=== PATIENT | female | born 1995 | race Caucasian/White ===

== ENCOUNTER 2016-09-18 12:14 | Emergency (ER) | payer BC, MEDICAID ==
[~2016-09-18] VITALS: Wt 96.5 kg
[~2016-09-18 12:14] MED LIST: DENIES; HYDR-3498 PO; IBUP-1542 PO; OMEP40CA3 PO
[2016-09-18] MEDS ORDERED: ONDANSETRON 4 MG INJ IV STA (14:17)
[2016-09-18] MEDS ORDERED: SOD CHLORIDE 0.9% 1,000 ML IV STA (14:17)
[2016-09-18] MEDS ORDERED: morphine 4 MG/ML VIAL IV STA (14:17)
[2016-09-18 14:51] LABS: BASOPHIL # 0.1 10^3/ul (0.0-0.1); BASOPHILS % 0.9 % (0.0-2.0); EOSINOPHILS # 0.1 10^3/ul (0.0-0.5); EOSINOPHILS % 1.2 % (0.0-7.0); HEMATOCRIT 39.6 % (37.0-47.0); HEMOGLOBIN 13.2 g/dl (12.0-16.0); LYMPHOCYTES # 1.7 10^3/ul (0.8-2.9); LYMPHOCYTES % 19.9 % (18.0-55.0); MEAN CORPUSCULAR HEMOGLOBIN 29.5 pg (29.0-33.0); MEAN CORPUSCULAR HGB CONC 33.4 g/dl (32.0-37.0); MEAN CORPUSCULAR VOLUME 88.3 fl (72.0-104.0); MEAN PLATELET VOLUME 7.9 fl (7.4-10.4); MONOCYTE # 0.5 10^3/ul (0.3-0.9); MONOCYTES % 6.3 % (0.0-13.0); NEUTROPHIL # 6.1 10^3/ul (1.6-7.5); NEUTROPHILS % 71.7 % (30.0-74.0); PLATELET COUNT 318 10^3/UL (140-440); RED BLOOD COUNT 4.48 10^6/ul (4.20-5.40); RED CELL DISTRIBUTION WIDTH 13.2 % (11.5-14.5); UNCORRECTED WBC 8.5 10^3/ul (4.8-10.8); WHITE BLOOD COUNT 8.5 10^3/ul (4.8-10.8)
[2016-09-18 14:59] LABS: ALBUMIN 4.3 g/dl (3.3-4.9); POTASSIUM 4.2 mmol/L (3.5-5.1)
[2016-09-18 15:01] LABS: BILIRUBIN,INDIRECT 0.1 mg/dl (0-1.1); BILIRUBIN,TOTAL 0.1 mg/dl (0.2-1.3); CREATININE 0.76 mg/dl (0.44-1.00)
[2016-09-18 15:02] LABS: ALBUMIN/GLOBULIN RATIO 1.04; CALCIUM 9.3 mg/dl (8.4-10.2); TOTAL PROTEIN 8.4 g/dl (6.1-8.1)
--- NOTE | 2016-09-18 15:17 | ERD ---
ER Documentation Chief Complaint Date/Time DATE: 09/18/16 TIME: 15:10 Chief Complaint BILAT SIDE PAIN, STATES HX OF "OVARIAN PAIN", NO VB HPI This is a 20-year-old female presents to the ER with lower abdominal pain that started 2 days ago. Patient states that pelvic pain is sharp, severe and constant. It is worse whenever she moves. Pain radiates to her back. Patient admits to urinary frequency and dysuria. She also admits to pain with sexual intercourse. Patient is also complaining of vaginal discharge that is yellow in color, patient states she has not smelled the discharge and does not know if there is foul-smelling. Patient is currently sexually active with her boyfriend and she uses condoms. Patient is worried she has a strong family history of ovarian cancer. Patient admits to fevers and chills. She denies any nausea vomiting or diarrhea. ROS 12 point review of systems was done, all negative except per HPI. Medications Home Meds Active Scripts Hydrocodone/Acetaminophen ([place] 5-325 Tablet) 1 Each Tablet, 1 TAB PO Q6H Y for PAIN, #20 TAB Prov:KARLA,CORAZON C 09/18/16 Metronidazole* (Flagyl*) 500 Mg Tablet, 500 MG PO TID for 7 Days, TAB Prov:KARLA,CORAZON C 09/18/16 Hydrocodone Bit-Acetaminophen* ([place]*) 5-325 Mg Tab, 1 TAB PO Q6 Y for PAIN, # 20 TAB Prov:KARLACORAZON C 12/09/15 Ibuprofen* (Motrin*) 600 Mg Tab, 600 MG PO Q6, #30 TAB Prov:KARLACORAZON C 12/09/15 Omeprazole* (Prilosec*) 40 Mg Capsule.dr, 40 MG PO DAILY for 14 Days, CAP Prov:SUHA TENORIO [employer]IC[employer] FARM MANAGER 07/19/15 Reported Medications [Denies] No Conflict Check 09/26/10 Allergies Allergies: Coded Allergies: No Known Drug Allergies (Verified Allergy, Mild, 09/18/16) PMhx/Soc History of Surgery: No Anesthesia Reaction: No Hx Neurological Disorder: No Hx Respiratory Disorders: Yes (ASTHMA) Hx Cardiac Disorders: No Hx Psychiatric Problems: No Hx Miscellaneous Medical Probl: No Hx Alcohol Use: No Hx Substance Use: No Hx Tobacco Use: Yes Smoking Status: Never smoker Physical Exam Vitals Vital Signs Date Time Temp Pulse Resp B/P Pulse Ox O2 Delivery O2 Flow Rate FiO2 09/18/16 12:29 97.8 100 17 133/82 99 Physical Exam GENERAL: The patient is well developed and appropriate for usual state of health , in no apparent distress. HEENT: Atraumatic. CHEST: Clear to auscultation bilaterally. There are no rales, wheezes or rhonchi. HEART: Regular rate and rhythm. No murmurs, clicks, rubs or gallops. ABDOMEN: Patient is tender to palpation all over the abdomen. Good bowel sounds. No rebound or guarding. No gross peritonitis. No gross organomegaly or masses. No Bajwa sign or McBurney point tenderness. BACK: No midline or flank tenderness. : there is yellow vaginal discharge, negative chandlier sign. ovaries not felt EXTREMITIES: Full range of motion. Grossly neurovascularly intact. NEURO: Alert and oriented. Result Diagram: 09/18/16 1405 09/18/16 1405 Results 24 hrs Laboratory Tests Test 09/18/16 14:05 09/18/16 14:35 Alanine Aminotransferase (ALT/SGPT) 29IU/L Albumin 4.3g/dl Albumin/Globulin Ratio 1.04 Alkaline Phosphatase 83IU/L Anion Gap 17 Aspartate Amino Transf (AST/SGOT) 20IU/L Basophils # 0.110^3/ul Basophils % 0.9% Blood Urea Nitrogen 15mg/dl Calcium Level 9.3mg/dl Carbon Dioxide Level 28mmol/L Chloride Level 105mmol/L Creatinine 0.76mg/dl Direct Bilirubin 0.00mg/dl Eosinophils # 0.110^3/ul Eosinophils % 1.2% Globulin 4.10g/dl Glucose Level 69mg/dl Hematocrit 39.6% Hemoglobin 13.2g/dl Indirect Bilirubin 0.1mg/dl Lipase 68U/L Lymphocytes # 1.710^3/ul Lymphocytes % 19.9% Mean Corpuscular Hemoglobin 29.5pg Mean Corpuscular Hemoglobin Concent 33.4g/dl Mean Corpuscular Volume 88.3fl Mean Platelet Volume 7.9fl Monocytes # 0.510^3/ul Monocytes % 6.3% Neutrophils # 6.110^3/ul Neutrophils % 71.7% Nucleated Red Blood Cells # 0.010^3/ul Nucleated Red Blood Cells % 0.0/100WBC Platelet Count 08084^3/UL Potassium Level 4.2mmol/L Red Blood Count 4.4810^6/ul Red Cell Distribution Width 13.2% Sodium Level 146mmol/L Total Bilirubin 0.1mg/dl Total Protein 8.4g/dl White Blood Count 8.510^3/ul Urine Bacteria FEW Urine Bilirubin NEGATIVE Urine Clarity HAZY Urine Color LT. YELLOW Urine Glucose NEGATIVE% Urine Hemoglobin 3+ Urine Ketones TRACE Urine Leukocyte Esterase TRACE Urine Microscopic RBC 5-10/HPF Urine Microscopic WBC 2-5/HPF Urine Mucus MODERATE Urine Nitrite NEGATIVE Urine Specific [place] >=1.030 Urine Squamous Epithelial Cells MODERATE Urine Total Protein TRACE Urine Urobilinogen 0.2 E.U./dL Urine pH 6.0 Current Medications Medications (Trade) Dose Ordered Sig/[place] Route PRN Reason Start Time Stop Time Status Last Admin Dose Admin Sodium Chloride (NS) 1,000 ml @ 1,000 mls/hr Q1H STAT IV 09/18/16 14:17 09/18/16 15:16 DC 09/18/16 14:47 Morphine Sulfate (morphine) 6 mg ONCE STAT IV 09/18/16 14:17 09/18/16 14:20 DC 09/18/16 14:47 Ondansetron HCl (Zofran Inj) 4 mg ONCE STAT IV 09/18/16 14:17 09/18/16 14:20 DC 09/18/16 14:47 Ceftriaxone Sodium (Rocephin) 250 mg ONCE ONCE IM 09/18/16 16:30 09/18/16 16:33 DC 09/18/16 16:47 Azithromycin (Zithromax) 1,000 mg ONCE ONCE PO 09/18/16 16:30 09/18/16 16:33 DC 09/18/16 16:46 Procedures/MDM Differential diagnosis includes but is not limited to; appendicitis, intra- abdominal abscess, tubo-ovarian abscess, , ovarian torsion, STI, pelvic inflammatory disease, UTI, pyelonephritis, bacterial vaginosis. This is a 20-year-old female presents to the ER with abdominal pain. At this time patient diagnostic examination is normal. On pelvic exam patient did have a yellow purulent vaginal discharge. Patient will be treated for possible STI's and she will also be treated for bacterial vaginosis. Urinary tract infection, I doubt pyelonephritis. She is afebrile and well-appearing. Patient will be sent home with metronidazole and with [place] for pain. Patient needs to follow- up with her primary care doctor within 1-2 days or return to ER sooner if symptoms worsen. My medical decision making was shared with the patient she understands and agrees with plan. Departure Diagnosis: Primary Impression: Vaginal discharge Additional Impression: Pelvic pain Condition: Stable CORAZON ACOSTA Sep 18, 2016 15:16
[2016-09-18 15:20] LABS: CONDITION 1
[2016-09-18 15:31] LABS: ADD UMIC YES; URINE BILIRUBIN (Dip) NEGATIVE (NEGATIVE); URINE BLOOD (Dip) 3+ (NEGATIVE); URINE COLOR LT. YELLOW (YELLOW); URINE GLUCOSE (Dip) NEGATIVE (NEGATIVE); URINE KETONES (Dip) TRACE (NEGATIVE); URINE LEUKOCYTE ESTERASE (Dip) TRACE (NEGATIVE); URINE NITRITE (Dip) NEGATIVE (NEGATIVE); URINE TOTAL PROTEIN (Dip) TRACE (NEGATIVE); URINE UROBILINOGEN (Dip) 0.2 E.U./dL (0.1-1.0)
--- NOTE | 2016-09-18 15:31 | RADRPT ---
PROCEDURE: US Pelvis. CLINICAL INDICATION: pelvic pain TECHNIQUE: Multiple sonographic images of the pelvis were obtained utilizing a transabdominal and endovaginal technique. The images were reviewed on a PACS workstation. COMPARISON: None. LMP: 04/17/2016 FINDINGS: The uterus measures 7.1 x 2.9 x 3.8 cm. The endometrial echo complex measures 7 mm in thickness. N o discrete lesion is seen. The right ovary measures 2.6 x 2.1 x 2.4 cm. The left ovary measures 2.5 x 1.5 x 1.8 cm. There is no rmal vascular flow in both ovaries. No significant ovarian lesions are seen. No significant pelvic free fluid is identified. IMPRESSION: Unremarkable pelvic ultrasound, as above. RPTAT: EE Physician Lukasz Date Time Electronically viewed and signed by Physician Lukasz on 09/18/2016 15:31 /
[2016-09-18 15:41] LABS: BACTERIA,URINE FEW; MUCUS,URINE MODERATE; SQUAMOUS EPITHELIAL CELL,UR MODERATE
--- NOTE | 2016-09-18 15:43 | RADRPT ---
PROCEDURE: CT abdomen and pelvis without contrast and with 3-D reconstructions CLINICAL INDICATION: Abdominal Pain, family history of ovarian/pelvic cancer TECHNIQUE: CT scan of the abdomen and pelvis without contrast was performed on a multislice CT [facility]. 3-D sagittal and coronal reformatted images were obtained from the axial source images. DLP 1336.96 mGycm CTDIvol 21.65 mGy COMPARISON: Pelvic ultrasound from the same date FINDINGS: The visualized lung bases are unremarkable. The liver is homogenous in attenuation. There are no focal liver lesions. There is no intrahepatic or extrahepatic biliary ductal dilatation. The gallbladder is within normal limits. The spleen, pancreas, and adrenal glands are within normal limits. The kidneys are symmetric and without focal lesions. There are no renal calculi. There is no obstruc tive uropathy. There are no dilated or thickened loops of bowel. The appendix is within normal limits. The aorta is within normal limits. There are no enlarged mesenteric, periaortic, or retroperitoneal lymph nodes. The bladder is within normal limits. There is no free air. There is no free fluid. There are no enlarged intrapelvic or inguinal lymph nodes. Osseous and soft tissue structures are unremarkable. IMPRESSION: Unremarkable noncontrast CT scan of the abdomen and pelvis. RPTAT: EE Physician Lukasz Date Time Electronically viewed and signed by Physician Lukasz on 09/18/2016 15:42 /
[2016-09-18] MEDS ORDERED: AZITHROMYCIN 250 MG TAB PO ONE (16:30)
[2016-09-18] MEDS ORDERED: CEFTRIAXONE 250 MG INJ IM ONE (16:30)
[2016-09-18] MEDS ORDERED: METR500T PO (16:37)
[2016-09-18] MEDS ORDERED: HYDR-906 PO (16:52)
== END 2016-09-18 17:27 | disposition home or self-care (01) ==
LOC: FTE 12:14
DX: N89.8 Other specified noninflammatory disorders of vagina (principal); J45.909 Unspecified asthma, uncomplicated; Z87.891 Personal history of nicotine dependence
CPT/HCPCS: 74176; 76830; 76856; 80053; 81001; 83690; 85025; 96372; 96374; 96375; 99285; J0696; J2270; J2405; J7030; Z7610; 81003

== ENCOUNTER 2017-04-29 23:51 | Emergency (ER) | payer BC ==
[~2017-04-29] VITALS: Ht 170.2 cm; Wt 103.5 kg
[~2017-04-29 23:51] MED LIST changes: +HYDR-906 PO; +METR500T PO
[2017-04-30 00:15] VITALS: Ht 170.2 cm; Wt 103.5 kg
--- NOTE | 2017-04-30 01:49 | ERD ---
ER Documentation Chief Complaint Date/Time DATE: 04/30/17 TIME: 01:48 Chief Complaint VB of clots today, 11 weeks preg HPI 21 year old female A0 comes in 11 weeks with vaginal bleeding and pelvic cramping for 1 day. No fever, nausea, vomiting, dizziness. ROS All systems reviewed and are negative except as per history of present illness. Medications Home Meds Active Scripts Hydrocodone/Acetaminophen ([place] 5-325 Tablet) 1 Each Tablet, 1 TAB PO Q6H Y for PAIN, #20 TAB Prov:KARLASONGCORAZON C 09/18/16 Metronidazole* (Flagyl*) 500 Mg Tablet, 500 MG PO TID for 7 Days, TAB Prov:KARLA,CORAZON C 09/18/16 Hydrocodone Bit-Acetaminophen* ([place]*) 5-325 Mg Tab, 1 TAB PO Q6 Y for PAIN, # 20 TAB Prov:KARLA,CORAZON C 12/09/15 Ibuprofen* (Motrin*) 600 Mg Tab, 600 MG PO Q6, #30 TAB Prov:KARLA,CORAZON C 12/09/15 Omeprazole* (Prilosec*) 40 Mg Capsule.dr, 40 MG PO DAILY for 14 Days, CAP Prov:SUHA TENORIO [employer] PERSON 07/19/15 Reported Medications [Denies] No Conflict Check 09/26/10 Allergies Allergies: Coded Allergies: No Known Drug Allergies (Verified Allergy, Mild, 09/18/16) PMhx/Soc History of Surgery: No Anesthesia Reaction: No Hx Neurological Disorder: No Hx Respiratory Disorders: Yes (ASTHMA) Hx Cardiac Disorders: No Hx Psychiatric Problems: No Hx Miscellaneous Medical Probl: No Hx Alcohol Use: No Hx Substance Use: No Hx Tobacco Use: Yes Physical Exam Vitals Vital Signs Date Time Temp Pulse Resp B/P Pulse Ox O2 Delivery O2 Flow Rate FiO2 04/30/17 00:15 98.6 83 18 121/77 98 Physical Exam General: Well-developed, well-nourished. The patient appears in no acute distress. HEENT: Head is normocephalic, atraumatic. No scleral icterus. Pupils are equal , round, and reactive. Oral mucous membranes are moist. No pharyngeal erythema. Neck: Supple. Nontender. Lungs: Clear to auscultation. Normal air movement. Heart: Regular rate and rhythm. S1 and S2 are normal. No murmurs, gallops, or rubs. Abdomen: Soft, nontender, nondistended. Bowel sounds are normoactive. Extremities: No clubbing or cyanosis. Normal pulses. Moving extremities x 4. No weakness. Neurologic: Alert and oriented 3. No focal deficits. Skin: Normal turgor. No rash or lesions. Result Diagram: 04/30/17 0140 Results 24 hrs Laboratory Tests Test 04/30/17 01:40 White Blood Count 12.410^3/ul Red Blood Count 4.2810^6/ul Hemoglobin 12.7g/dl Hematocrit 38.3% Mean Corpuscular Volume 89.5fl Mean Corpuscular Hemoglobin 29.7pg Mean Corpuscular Hemoglobin Concent 33.2g/dl Red Cell Distribution Width 13.1% Platelet Count 79435^3/UL Mean Platelet Volume 9.9fl Neutrophils % 63.3% Lymphocytes % 27.1% Monocytes % 6.6% Eosinophils % 2.4% Basophils % 0.3% Nucleated Red Blood Cells % 0.0/100WBC Neutrophils # (Manual) 7.910^3/ul Lymphocytes # 3.410^3/ul Monocytes # 0.810^3/ul Eosinophils # 0.310^3/ul Basophils # 0.010^3/ul Nucleated Red Blood Cells # 0.010^3/ul Urine Color YELLOW Urine Clarity CLEAR Urine pH 5.0 Urine Specific [place] 1.028 Urine Ketones NEGATIVEmg/dL Urine Nitrite NEGATIVEmg/dL Urine Bilirubin NEGATIVEmg/dL Urine Urobilinogen NEGATIVEmg/dL Urine Leukocyte Esterase NEGATIVELeu/ul Urine Microscopic RBC 4/HPF Urine Microscopic WBC 3/HPF Urine Hemoglobin 1+mg/dL Urine Glucose NEGATIVEmg/dL Urine Total Protein NEGATIVEmg/dl Beta HCG, Quantitative 11192.0mIU/ml Procedures/MDM 21-year-old female comes in with vaginal bleeding 1 day, she is approximate 10 weeks and 6 days with a single live intrauterine seen on ultrasound. Patient is hemodynamically stable, does not show any signs of infection. Patient is type and Rh+, no indication for RhoGam, and urine is negative for infection. She is able for outpatient management is to recheck with her OB. Departure Diagnosis: Primary Impression: Vaginal bleeding in patient at less than 20 weeks gestation Condition: ANN Hess PA-C Apr 30, 2017 01:49
--- NOTE | 2017-04-30 02:33 | RADRPT ---
PROCEDURE: US OB. CLINICAL INDICATION: , spotting. TECHNIQUE: Multiple sonographic images of the pelvis were obtained. Transabdominal views of the p denise are available for review. The images were reviewed on a PACS workstation. COMPARISON: No prior studies are available for comparison. FINDINGS: There is a single intrauterine . The mean gestational sac diameter measures 4.37 cm, corres ponding to a 03-mmyq-3-day . The crown-rump length equals 4.66 cm which corresponds to a 1 2-oqqv-9-day gestational age by ultrasound criteria. cardiac activity measures 161 bpm. No s ubchorionic hemorrhage is identified. The ovaries are not visualized. The adnexa are unremarkable. There is no free pelvic fluid. IMPRESSION: 1. Single viable intrauterine gestation of approximately 10 weeks 6 days. 2. The estimated date of delivery is 11/20/2017. 3. The ovaries are not visualized. RPTAT: HTAR .Juan C Trimble MD, MD Date Time Electronically viewed and signed by .Juan C Trimble MD, on 04/30/2017 02:33 .R/
[2017-04-30 03:47] LABS: ADD UMIC YES; UR ASCORBIC ACID NEGATIVE (NEGATIVE); UR BILIRUBIN (Dip) NEGATIVE (NEGATIVE); UR BLOOD (Dip) 1+ mg/dL (NEGATIVE); UR CLARITY CLEAR (CLEAR); UR COLOR YELLOW (YELLOW); UR GLUCOSE (Dip) NEGATIVE (NEGATIVE); UR KETONES (Dip) NEGATIVE (NEGATIVE); UR LEUKOCYTE ESTERASE (Dip) NEGATIVE Leu/ul (NEGATIVE); UR NITRITE (Dip) NEGATIVE (NEGATIVE); UR RBC 4 /HPF (0-5); UR SPECIFIC GRAVITY (Dip) 1.028 (1.003-1.030); UR TOTAL PROTEIN (Dip) NEGATIVE (NEGATIVE); UR UROBILINOGEN (Dip) NEGATIVE (NEGATIVE)
[2017-04-30 03:48] LABS: BASOPHILS % 0.3 % (0.0-2.0); EOSINOPHILS # 0.3 10^3/ul (0.0-0.5); EOSINOPHILS % 2.4 % (0.0-7.0); HEMATOCRIT 38.3 % (37.0-47.0); HEMOGLOBIN 12.7 g/dl (12.0-16.0); LYMPHOCYTES # 3.4 10^3/ul (0.8-2.9); LYMPHOCYTES % 27.1 % (18.0-55.0); MEAN CORPUSCULAR HEMOGLOBIN 29.7 pg (29.0-33.0); MEAN CORPUSCULAR HGB CONC 33.2 g/dl (32.0-37.0); MEAN CORPUSCULAR VOLUME 89.5 fl (72.0-104.0); MEAN PLATELET VOLUME 9.9 fl (7.4-10.4); MONOCYTE # 0.8 10^3/ul (0.3-0.9); MONOCYTES % 6.6 % (0.0-13.0); NEUTROPHILS % 63.3 % (30.0-74.0); PLATELET COUNT 308 10^3/UL (140-415); RED BLOOD COUNT 4.28 10^6/ul (4.20-5.40); RED CELL DISTRIBUTION WIDTH 13.1 % (11.5-14.5); WHITE BLOOD COUNT 12.4 10^3/ul (4.8-10.8)
[2017-04-30 04:05] VITALS: BP 117/75; PULSE 94; RESP 18; TEMP 98.4
== END 2017-04-30 04:05 | disposition home or self-care (01) ==
LOC: FTE 23:51
DX: O20.9 Hemorrhage in early pregnancy, unspecified (principal); O99.511 Diseases of the respiratory system complicating pregnancy, first trimester; J45.909 Unspecified asthma, uncomplicated; R10.2 Pelvic and perineal pain; Z3A.10 10 weeks gestation of pregnancy; Z87.891 Personal history of nicotine dependence
CPT/HCPCS: 36415; 76801; 81001; 84702; 85025; 86900; 86901

== ENCOUNTER 2017-06-05 12:26 | Emergency (ER) | payer BC ==
[~2017-06-05] VITALS: Ht 165.1 cm; Wt 105.5 kg
[2017-06-05 12:35] VITALS: Ht 165.1 cm; Wt 105.5 kg
--- NOTE | 2017-06-05 14:54 | RADRPT ---
PROCEDURE: US OB. CLINICAL INDICATION: Vaginal bleeding TECHNIQUE: Multiple sonographic images of the pelvis were obtained. The images were reviewed on a PACS workstation. COMPARISON: 04/29/2017 FINDINGS: There is a single viable intrauterine gestation. Cardiac activity is present with 140 beats per min [place]. There is a variable presentation. Measurements were made in order to determine age. The results are as follows: BPD =3.5 cm HC =13.4 cm AC =4.1 cm FL =2.1 cm. Estimated gestational age of approximately 16-week 6 days. The estimated date of delivery is 11/14/2017. The EFW = 178 grams. The placenta is left anterior and low-lying. There is no evidence for an abruption or placenta previ a. The cervix is closed measures 3.1 cm in length. There are no adnexal masses. IMPRESSION: 1. Single live intrauterine with an estimated gestational age of 16 weeks and 6 days. 2. Low-lying placenta. Correlation to the patient's clinical status as well as a short interval fol low-up is suggested. RPTAT: HPNM Physician Mihai Date Time Electronically viewed and signed by Physician Mihai on 06/05/2017 14:54 /
--- NOTE | 2017-06-05 15:12 | ERD ---
ER Documentation Chief Complaint Date/Time DATE: 06/05/17 TIME: 15:10 Chief Complaint 16 weeks vag bleed and pelvic pain since last night HPI This 21-year-old female complains of vaginal spotting since yesterday. She denies any significant pain or cramping denies fevers, vomiting. She did have some brief episodes of spotting a few weeks ago which improved. She had no signs of acute abnormalities at that time on diagnostic testing. G1 para 0. ROS All systems reviewed and are negative except as per history of present illness. Medications Home Meds Active Scripts Hydrocodone/Acetaminophen ([place] 5-325 Tablet) 1 Each Tablet, 1 TAB PO Q6H Y for PAIN, #20 TAB Prov:KARLACORAZON C 09/18/16 Metronidazole* (Flagyl*) 500 Mg Tablet, 500 MG PO TID for 7 Days, TAB Prov:KARLA,CORAZON C 09/18/16 Hydrocodone Bit-Acetaminophen* ([place]*) 5-325 Mg Tab, 1 TAB PO Q6 Y for PAIN, # 20 TAB Prov:KARLA,CORAZON C 12/09/15 Ibuprofen* (Motrin*) 600 Mg Tab, 600 MG PO Q6, #30 TAB Prov:KARLA,CORAZON C 12/09/15 Omeprazole* (Prilosec*) 40 Mg Capsule.dr, 40 MG PO DAILY for 14 Days, CAP Prov:SUHA TENORIO DIRECTOR OF HOUSING 07/19/15 Reported Medications [Denies] No Conflict Check 09/26/10 Allergies Allergies: Coded Allergies: No Known Drug Allergies (Verified Allergy, Mild, 09/18/16) PMhx/Soc Medical and Surgical Hx: pt denies Surgical Hx History of Surgery: No Anesthesia Reaction: No Hx Neurological Disorder: No Hx Respiratory Disorders: Yes (ASTHMA) Hx Cardiac Disorders: No Hx Psychiatric Problems: No Hx Miscellaneous Medical Probl: No Hx Alcohol Use: No Hx Substance Use: No Hx Tobacco Use: No Smoking Status: Never smoker Physical Exam Vitals Vital Signs Date Time Temp Pulse Resp B/P Pulse Ox O2 Delivery O2 Flow Rate FiO2 06/05/17 12:35 97.7 81 18 109/59 100 Physical Exam Const: [] Alert, [id number]. Head: Atraumatic Eyes: Normal Conjunctiva ENT: Normal External Ears, Nose and Mouth. Neck: Full range of motion..~ No meningismus. Resp: Clear to auscultation bilaterally Cardio: Regular rate and rhythm, no murmurs Abd: Soft, non tender, non distended. Normal bowel sounds Skin: No petechiae or rashes Back: No midline or flank tenderness Ext: No cyanosis, or edema Neur: Awake and alert Psych: Normal Mood and Affect Procedures/MDM Pelvic ultrasound shows single live intrauterine of 16 weeks 6 days. There is a low-lying placenta no acute abnormality such as ectopic , ovarian torsion appreciated. Cervix is closed. Is Rh+ upon review of previous visit. Patient was stable amatory throughout the ED course. Presents with vaginal bleeding second trimester of uncertain etiology without acute abnormalities. She will discharged home with further observation and primary care and OB follow-up and return precautions. The patient was stable with no new complaints during the ER course. Clinically, there is no current evidence to suggest meningitis, sepsis, acute abdomen, pneumonia, acute coronary syndrome, pulmonary embolism, or any other emergent condition appearing to require further evaluation or hospitalization. The patient should certainly return for any new or worsening symptoms per the aftercare instructions. They should otherwise follow-up with her primary care doctor for reevaluation this week. Departure Diagnosis: Primary Impression: Vaginal bleeding in patient at less than 20 weeks ges... Condition: Stable Patient Instructions: Bleeding During Early Additional Instructions: Ultrasound shows no acute abnormalities today. Follow-up with OB. Recheck for new or worsening symptoms such as fevers, vomiting, clots, tissues, pain. EJ ROMANO MD Jun 05, 2017 15:12
[2017-06-05 15:41] LABS: ADD UMIC YES; UR ASCORBIC ACID NEGATIVE (NEGATIVE); UR BILIRUBIN (Dip) NEGATIVE (NEGATIVE); UR BLOOD (Dip) NEGATIVE (NEGATIVE); UR CLARITY CLEAR (CLEAR); UR COLOR YELLOW (YELLOW); UR GLUCOSE (Dip) NEGATIVE (NEGATIVE); UR KETONES (Dip) TRACE mg/dL (NEGATIVE); UR LEUKOCYTE ESTERASE (Dip) TRACE Leu/ul (NEGATIVE); UR NITRITE (Dip) NEGATIVE (NEGATIVE); UR RBC 1 /HPF (0-5); UR SPECIFIC GRAVITY (Dip) 1.026 (1.003-1.030); UR SQUAMOUS EPITHELIAL CELL FEW /HPF (FEW); UR TOTAL PROTEIN (Dip) NEGATIVE (NEGATIVE); UR UROBILINOGEN (Dip) NEGATIVE (NEGATIVE)
[2017-06-05 15:50] VITALS: BP 115/62; PULSE 67; RESP 18; TEMP 97.7
== END 2017-06-05 15:51 | disposition home or self-care (01) ==
LOC: FTE 12:26
DX: O20.9 Hemorrhage in early pregnancy, unspecified (principal); O99.512 Diseases of the respiratory system complicating pregnancy, second trimester; J45.909 Unspecified asthma, uncomplicated; Z3A.16 16 weeks gestation of pregnancy
CPT/HCPCS: 76805; 81001; Z7502

== ENCOUNTER 2017-07-02 12:16 | Emergency (ER) | payer BC ==
[~2017-07-02] VITALS: Ht 167.6 cm; Wt 110.5 kg
[2017-07-02 12:30] VITALS: Ht 167.6 cm; Wt 110.5 kg
[2017-07-02] MEDS ORDERED: ACET500C5 PO (13:54)
--- NOTE | 2017-07-02 13:57 | ERD ---
ER Documentation Chief Complaint Chief Complaint mid chest wall pain x 2 days, 20wks , denies abdominal or back pain HPI This 21-year-old female presents with multiple complaints. She is 20 weeks by dates. She has had a recent cough and congestion and sore throat over the weekend which is improving. She has anterior chest wall pain, worse with touching and breathing. She also has low back pain. She denies any abdominal pain, dysuria or vaginal bleeding. She denies any fevers or productive cough. She denies any syncope or seizure. Patient had an appointment with her OB today but told him that she was having discomfort in her chest and they referred her to the ER for further evaluation. ROS All systems reviewed and are negative except as per history of present illness. Medications Home Meds Active Scripts Acetaminophen* (Tylophen*) 500 Mg Capsule, 1 CAP PO Q6H Y for PAIN AND OR ELEVATED TEMP, #20 CAP Prov:EJ ROMANO MD 07/02/17 Hydrocodone/Acetaminophen ([place] 5-325 Tablet) 1 Each Tablet, 1 TAB PO Q6H Y for PAIN, #20 TAB Prov:KARLACORAZON C 09/18/16 Metronidazole* (Flagyl*) 500 Mg Tablet, 500 MG PO TID for 7 Days, TAB Prov:KARLA,CORAZON C 09/18/16 Hydrocodone Bit-Acetaminophen* ([place]*) 5-325 Mg Tab, 1 TAB PO Q6 Y for PAIN, # 20 TAB Prov:KARLA,CORAZON C 12/09/15 Ibuprofen* (Motrin*) 600 Mg Tab, 600 MG PO Q6, #30 TAB Prov:KARLA,CORAZON C 12/09/15 Omeprazole* (Prilosec*) 40 Mg Capsule.dr, 40 MG PO DAILY for 14 Days, CAP Prov:SUHA TENORIO NP 07/19/15 Reported Medications [Denies] No Conflict Check 09/26/10 Allergies Allergies: Coded Allergies: No Known Drug Allergies (Verified Allergy, Mild, 09/18/16) PMhx/Soc History of Surgery: No Anesthesia Reaction: No Hx Neurological Disorder: No Hx Respiratory Disorders: Yes (ASTHMA) Hx Cardiac Disorders: No Hx Psychiatric Problems: No Hx Miscellaneous Medical Probl: No Hx Alcohol Use: No Hx Substance Use: No Hx Tobacco Use: No Physical Exam Vitals Vital Signs Date Time Temp Pulse Resp B/P Pulse Ox O2 Delivery O2 Flow Rate FiO2 07/02/17 12:30 97.9 71 18 132/80 100 Physical Exam Const: [] Alert, [id number]. Head: Atraumatic Eyes: Normal Conjunctiva ENT: Normal External Ears, Nose and Mouth. TMs and oropharynx normal. Neck: Full range of motion..~ No meningismus. Resp: Clear to auscultation bilaterally Cardio: Regular rate and rhythm, no murmurs reproducible left chest wall pain at the costochondral junction. Abd: Soft, non tender, non distended. Normal bowel sounds Skin: No petechiae or rashes Back: No midline or flank tenderness. Minimal tenderness in the L4-5 paraspinous muscles. Ext: No cyanosis, or edema Neur: Awake and alert Psych: Normal Mood and Affect Procedures/MDM Patient presents with multiple symptoms and complaints including resolving URI symptoms, reproducible chest wall pain and low back pain. Patient has no signs or symptoms to suggest acute complications of such as ectopic , acute abdomen there is no evidence of hypoxemia or respiratory distress. Recommending Tylenol and further observation at home and observance for new symptoms, primary care follow-up and return precautions. EKG: Rate/Rhythm: [Normal Sinus Rhythm] rate equals 72 QRS, ST, T-waves: [No changes consistent w/ acute ischemia] Impression: [No evidence of ischemia or arrhythmia] impression-normal EKG The patient was stable with no new complaints during the ER course. Clinically, there is no current evidence to suggest meningitis, sepsis, acute abdomen, pneumonia, acute coronary syndrome, pulmonary embolism, or any other emergent condition appearing to require further evaluation or hospitalization. The patient should certainly return for any new or worsening symptoms per the aftercare instructions. They should otherwise follow-up with her primary care doctor for reevaluation this week. Departure Diagnosis: Primary Impression: URI, acute Additional Impressions: Low back pain Chronicity: acute Back pain laterality: left Sciatica presence: without sciatica Qualified Code: M54.5 - Acute left-sided low back pain without sciatica Chest wall pain Condition: Stable Patient Instructions: Causes of Lumbar (Low Back) Pain, Chest Wall Pain, Costochondritis, Uri, Viral, No Abx (Adult) Additional Instructions: Likely resolving URI and costochondritis. Recommend rest, fluids at home. Recheck for new or worsening symptoms-bleeding, fevers, shortness of breath, new or worsening symptoms. Follow-up with primary doctor or OB as scheduled. EJ ROMANO MD Jul 02, 2017 13:57
== END 2017-07-02 14:03 | disposition home or self-care (01) ==
LOC: FTE 12:16
DX: O99.89 Other specified diseases and conditions complicating pregnancy, childbirth and the puerperium (principal); O99.512 Diseases of the respiratory system complicating pregnancy, second trimester; J06.9 Acute upper respiratory infection, unspecified; M54.5 Low back pain; R07.89 Other chest pain; J45.909 Unspecified asthma, uncomplicated; Z3A.20 20 weeks gestation of pregnancy
CPT/HCPCS: 93005; Z7502

== ENCOUNTER 2017-07-25 15:19 | Outpatient (CLI) | payer BC ==
[~2017-07-25 15:19] MED LIST changes: +ACET500C5 PO
[2017-07-25] MEDS ORDERED: LACTATED RINGER'S 1,000 ML IV SCH (15:36)
[2017-07-25] MEDS ORDERED: CEFTRIAXONE 2 GM INJ IM ONE (16:00)
[2017-07-25] MEDS ORDERED: ACETAMINOPHEN 325 MG TAB PO PRN (16:00)
--- NOTE | 2017-07-25 16:42 | RADRPT ---
PROCEDURE: US OB. CLINICAL INDICATION: Uncertain size and dates. Decreased motion. TECHNIQUE: Multiple sonographic images of the uterus were obtained. The images were revi ewed on a PACS workstation. COMPARISON: No prior studies are available for comparison. FINDINGS: There is a single live intrauterine gestation. heart rate is 136 beats per minute. Measurements were made in order to determine age. The results are as follows: BPD = 6.01 cm. HC = 22.22 cm. AC = 19.54 cm. FL = 4.42 cm. Estimated weight is 689 +/- 103 grams. LMP growth percentile is 66 %. Amniotic fluid volume is grossly normal. Menstrual age by ultrasound dates is 24 weeks 3 days. The estimated date of delivery is 11/11/2017. Position is cephalic and placenta is anterior grade 0. There is no evidence for an abruption or plac enta previa. IMPRESSION: 1. Single live intrauterine gestation of 24 weeks 3 days menstrual age by ultrasound dates. 2. The estimated date of delivery is 11/11/2017. RPTAT: QQ .José Miguel Tate MD, MD Date Time Electronically viewed and signed by .José Miguel Tate MD, on 07/25/2017 16:42 .R/
--- NOTE | 2017-07-25 16:49 | RADRPT ---
PROCEDURE: US biophysical profile. CLINICAL INDICATION: Decreased motion. TECHNIQUE: Multiple sonographic images of the uterus were obtained. The images were revi ewed on a PACS workstation. COMPARISON: No prior studies are available for comparison. FINDINGS: There is a single live intrauterine gestation. heart rate is 136 beats per minute. The position is cephalic. The placenta is anterior grade 0 with no abruption or previa. Maximum vertical pocket of amniotic fluid is 6.8 cm. Breathing Movement: 2 Gross Body Movement: 2 Tone: 2 Qualitative Amniotic Fluid Volume: 2 TOTAL: 8 IMPRESSION: 1. The biophysical score is 8/8. RPTAT: QQ .José Miguel Tate MD, MD Date Time Electronically viewed and signed by .José Miguel Tate MD, on 07/25/2017 16:49 .R/
--- NOTE | 2017-07-25 18:36 | TRIAGE ---
OB Triage Datetime Report Generated by CPN: 07/25/2017 18:35 Datetime: 07/25/2017 18:02 Stage of : OB Triage Maternal Assessment Level of Consciousness: Fully Conscious DTR's/Clonus: DTRs 1+ Headache: Denies Breath Sounds, Left: Clear and Equal Breath Sounds, Right: Clear and Equal Nausea/Vomiting: Denies RUQ Epigastric Pain: Denies Labor Evaluation Frequency: 0 Monitor Mode: External Resting Tone [place]: Relaxed Heart Rate FHR Baseline Rate: 140 Monitor Mode: External US Variability: Moderate 6-25 bpm Accelerations: 10X10 Decelerations: None Pain Assessment Pain Scale: 0 Pain Presence: None/Denies Pain Type: N/A Pain Goal: 3 Vaginal Exam Membrane Status: Intact Datetime: 07/25/2017 17:25 Stage of : OB Triage Maternal Assessment Level of Consciousness: Fully Conscious DTR's/Clonus: DTRs 1+ Headache: Denies Breath Sounds, Left: Clear and Equal Breath Sounds, Right: Clear and Equal Nausea/Vomiting: Denies RUQ Epigastric Pain: Denies Labor Evaluation Frequency: 0 Monitor Mode: External Resting Tone [place]: Relaxed Heart Rate FHR Baseline Rate: 140 Monitor Mode: External US Variability: Moderate 6-25 bpm Accelerations: 10X10 Decelerations: None Category: Category I Pain Assessment Pain Scale: 0 Pain Presence: None/Denies Pain Type: N/A Pain Goal: 3 Vaginal Exam Membrane Status: Intact Datetime: 07/25/2017 16:25 Maternal Assessment Level of Consciousness: Fully Conscious DTR's/Clonus: DTRs 1+ Headache: Denies Blurred Vision: No Respiratory Effort: Unlabored Breath Sounds, Left: Clear and Equal Breath Sounds, Right: Clear and Equal Nausea/Vomiting: Denies RUQ Epigastric Pain: Denies Facial Edema: None Labor Evaluation Frequency: 0 Monitor Mode: External Resting Tone [place]: Relaxed Heart Rate FHR Baseline Rate: 140 Monitor Mode: External US Variability: Moderate 6-25 bpm Decelerations: None Category: Category I Pain Assessment Pain Scale: 0 Pain Presence: None/Denies Pain Type: N/A Pain Goal: 3 Vaginal Exam Membrane Status: Intact Datetime: 07/25/2017 15:35 Stage of : OB Triage Assessment Type: Triage Maternal Assessment Level of Consciousness: Fully Conscious DTR's/Clonus: DTRs 2+; No Clonus Headache: Denies Blurred Vision: No Respiratory Effort: Unlabored; Regular Rhythm; Equal Expansion Breath Sounds, Left: Clear and Equal Breath Sounds, Right: Clear and Equal Nausea/Vomiting: Denies RUQ Epigastric Pain: Denies Lower Extremities Edema: None Degree: None Upper Extremities Edema: None Degree: None Facial Edema: None Fall Risk Assessment History of Falling: (0) No Secondary Diagnosis: (0) No Ambulatory Aid: (0) Bedrest/Nurse Assist IV Therapy: (0) No Gait: (0) Normal/Bedrest/Immobile Mental Status: (0) Oriented to Own Ability Fall Score: 0 Fall Risk Score Definition: No Risk: No action required Datetime: 07/25/2017 15:34 EGA: 23.6 Datetime: 07/25/2017 15:17 Time of Arrival: 07/25/2017 15:17 Arrived By: Ambulatory Arrived From: Office Chief Complaint: PT CAME IN FROM [facility]ICE C/O DFM SINCE YESTERDAY. DENIES ANY OTHER PROBLEMS AT THIS TIME Movement: Present Contractions: Denies/Absent Rupture of Membranes: Denies Vaginal Discharge: Denies Recent Sexual Intercouse: Denies Abdominal Trauma: Not Applicable Additional Patient Complaints: NONE Time Provider Notified: 07/25/2017 17:50 Provider Notified: NEVIN Initial Plan: NST, TESHA, AND EFW
--- NOTE | 2017-07-25 21:03 | PN ---
Triage Information Date/Time July 25, 2017 Reason for visit: DFM Weeks of Gestation 23 weeks and 6 days /Para 1 para 0 Diabetes: none Hypertention: none Additional information 21-year-old with IUP at 23 weeks and 6 days with decreased movement. Denies any vaginal bleeding or leaking of fluid or contractions Objective Heart Rate: 120's Contractions: None Exam Abdomen: Soft, gravid, fundal height consistent with gestational age. Abdomen nontender nondistended, no guarding no rigidity NST: Appropriate for gestational age and reassuring Patient had been feeling movements during observation BP: 8/ Results/Medications Imaging Results PROCEDURE: US OB. CLINICAL INDICATION: Uncertain size and dates. Decreased motion. TECHNIQUE: Multiple sonographic images of the uterus were obtained. The images were reviewed on a PACS workstation. COMPARISON: No prior studies are available for comparison. FINDINGS: There is a single live intrauterine gestation. heart rate is 136 beats per minute. Measurements were made in order to determine age. The results are as follows: BPD = 6.01 cm. HC = 22.22 cm. AC = 19.54 cm. FL = 4.42 cm. Estimated weight is 689 +/- 103 grams. LMP growth percentile is 66 %. Amniotic fluid volume is grossly normal. Menstrual age by ultrasound dates is 24 weeks 3 days. The estimated date of delivery is 11/11/2017. Position is cephalic and placenta is anterior grade 0. There is no evidence for an abruption or placenta previa. IMPRESSION: 1. Single live intrauterine gestation of 24 weeks 3 days menstrual age by ultrasound dates. 2. The estimated date of delivery is 11/11/2017. RPTAT: QQ PROCEDURE: US biophysical profile. CLINICAL INDICATION: Decreased motion. TECHNIQUE: Multiple sonographic images of the uterus were obtained. The images were reviewed on a PACS workstation. COMPARISON: No prior studies are available for comparison. FINDINGS: There is a single live intrauterine gestation. heart rate is 136 beats per minute. The position is cephalic. The placenta is anterior grade 0 with no abruption or previa. Maximum vertical pocket of amniotic fluid is 6.8 cm. Breathing Movement: 2 Gross Body Movement: 2 Tone: 2 Qualitative Amniotic Fluid Volume: 2 TOTAL: 8 IMPRESSION: 1. The biophysical score is 8/8. RPTAT: QQ Disposition: Discharge Assessment/Plan IUP at 23 weeks and 6 days Decreased movement NST/BPP reassuring Patient was feeling movement after hydration in triage No evidence of labor DC home Follow-up with OB clinic in 24-48 hours Return to triage as needed any other concern STACIA CHA MD Jul 25, 2017 21:03
[2017-07-25] MEDS ORDERED: CEFTRIAXONE 1 GM INJ IVPB SCH (22:00)
[2017-07-26] MEDS ORDERED: FERROUS SULFATE (EC) 325 MG TAB PO SCH (09:00)
[2017-07-26] MEDS ORDERED: PRENATAL VITAMIN PO SCH (09:00)
== END 2017-07-25 18:10 | disposition home or self-care (01) ==
LOC: OBT 15:19 → L-D 15:22 → OBT 18:10
PROVIDERS: ATTEND Obstetrics & Gynecology
DX: O36.8120 Decreased fetal movements, second trimester, not applicable or unspecified (principal); Z3A.24 24 weeks gestation of pregnancy
CPT/HCPCS: 76815; 76818; G0463; J0696; J7120

== ENCOUNTER 2017-08-17 12:41 | Outpatient (CLI) | payer BC ==
[~2017-08-17] VITALS: Ht 170.2 cm; Wt 116.4 kg
[~2017-08-17 12:41] MED LIST changes: -ACET500C5 PO; -HYDR-3498 PO; -HYDR-906 PO; -IBUP-1542 PO; -METR500T PO; -OMEP40CA3 PO
[2017-08-17] MEDS ORDERED: PREN1TAB79 PO (12:50)
[2017-08-17 12:54] VITALS: Ht 170.2 cm; Wt 116.4 kg
[2017-08-17 12:55] VITALS: BP 111/70; PULSE 91
[2017-08-17 13:31] LABS: ADD UMIC YES; UR ASCORBIC ACID 40 mg/dL (NEGATIVE); UR BILIRUBIN (Dip) NEGATIVE (NEGATIVE); UR BLOOD (Dip) NEGATIVE (NEGATIVE); UR CLARITY CLEAR (CLEAR); UR COLOR YELLOW (YELLOW); UR GLUCOSE (Dip) 1+ mg/dL (NEGATIVE); UR KETONES (Dip) TRACE mg/dL (NEGATIVE); UR LEUKOCYTE ESTERASE (Dip) 1+ Leu/ul (NEGATIVE); UR NITRITE (Dip) NEGATIVE (NEGATIVE); UR RBC 1 /HPF (0-5); UR SPECIFIC GRAVITY (Dip) 1.023 (1.003-1.030); UR SQUAMOUS EPITHELIAL CELL FEW /HPF (FEW); UR TOTAL PROTEIN (Dip) NEGATIVE (NEGATIVE); UR UROBILINOGEN (Dip) NEGATIVE (NEGATIVE)
[2017-08-17 14:26] LABS: BASOPHILS % 0.3 % (0.0-2.0); EOSINOPHILS # 0.3 10^3/ul (0.0-0.5); HEMATOCRIT 31.3 % (37.0-47.0); HEMOGLOBIN 10.4 g/dl (12.0-16.0); LYMPHOCYTES # 1.8 10^3/ul (0.8-2.9); LYMPHOCYTES % 18.2 % (18.0-55.0); MEAN CORPUSCULAR HEMOGLOBIN 29.8 pg (29.0-33.0); MEAN CORPUSCULAR HGB CONC 33.2 g/dl (32.0-37.0); MEAN CORPUSCULAR VOLUME 89.7 fl (72.0-104.0); MEAN PLATELET VOLUME 9.3 fl (7.4-10.4); MONOCYTE # 0.8 10^3/ul (0.3-0.9); MONOCYTES % 8.2 % (0.0-13.0); NEUTROPHIL # 6.9 10^3/ul (1.6-7.5); NEUTROPHILS % 69.6 % (30.0-74.0); PLATELET COUNT 286 10^3/UL (140-415); RED BLOOD COUNT 3.49 10^6/ul (4.20-5.40); RED CELL DISTRIBUTION WIDTH 13.1 % (11.5-14.5); WHITE BLOOD COUNT 9.9 10^3/ul (4.8-10.8)
[2017-08-17 14:42] LABS: ALBUMIN 3.1 g/dl (3.3-4.9); ALBUMIN/GLOBULIN RATIO 0.93; CALCIUM 8.8 mg/dl (8.4-10.2); CREATININE 0.61 mg/dl (0.44-1.00); POTASSIUM 4.1 mmol/L (3.5-5.1); TOTAL PROTEIN 6.4 g/dl (6.1-8.1); URIC ACID 4.5 mg/dl (3.1-7.9)
--- NOTE | 2017-08-17 15:06 | RADRPT ---
PROCEDURE: Obstetrical ultrasound for biophysical profile CLINICAL INDICATION: Biophysical profile. . Headache TECHNIQUE: Obstetrical ultrasound of the uterus for biophysical profile. Transabdominal views are obtained. COMPARISON: US PELVIS 07/25/2017 FINDINGS: Single intrauterine gestation. Presentation: Cephalic. Placenta: Anterior. No evidence of placental abruption. No evidence of placenta previa. breathing movement = 2/2 tone = 2/2 motion = 2/2 TESHA = 2/2 TESHA = 17.8 cm heart rate: 137 beats per minute IMPRESSION: Single intrauterine gestation. Biophysical profile 04/10 RPTAT: AADD .Daniel Mcfadden MD, MD Date Time Electronically viewed and signed by .Daniel Mcfadden MD, on 08/17/2017 15:05 .B/
--- NOTE | 2017-08-17 16:04 | PN ---
Triage Information Date/Time Reason for visit: R/o preeclampsia Weeks of Gestation 26+ /Para 1/0 Diabetes: none Diabetes management: diet controlled Hypertention: none Objective Vital Signs Date Time Temp Pulse Resp B/P Pulse Ox O2 Delivery O2 Flow Rate FiO2 08/17/17 12:55 98.1 91 111/70 Room Air Heart Rate: 140's Contractions: None Results/Medications Result Diagram: 08/17/17 1414 08/17/17 1414 Results 24 hrs Laboratory Tests Test 08/17/17 13:05 08/17/17 14:14 Urine Color YELLOW Urine Clarity CLEAR Urine pH 6.0 Urine Specific [place] 1.023 Urine Ketones TRACE A Urine Nitrite NEGATIVE Urine Bilirubin NEGATIVE Urine Urobilinogen NEGATIVE Urine Leukocyte Esterase 1+ H Urine Microscopic RBC 1 Urine Microscopic WBC 6 H Urine Squamous Epithelial Cells FEW Urine Hemoglobin NEGATIVE Urine Glucose 1+ H Urine Total Protein NEGATIVE White Blood Count 9.9 # Red Blood Count 3.49 L Hemoglobin 10.4 L Hematocrit 31.3 L Mean Corpuscular Volume 89.7 Mean Corpuscular Hemoglobin 29.8 Mean Corpuscular Hemoglobin Concent 33.2 Red Cell Distribution Width 13.1 Platelet Count 286 Mean Platelet Volume 9.3 Neutrophils % 69.6 Lymphocytes % 18.2 Monocytes % 8.2 Eosinophils % 3.0 Basophils % 0.3 Nucleated Red Blood Cells % 0.0 Neutrophils # 6.9 Lymphocytes # 1.8 Monocytes # 0.8 Eosinophils # 0.3 Basophils # 0.0 Nucleated Red Blood Cells # 0.0 Sodium Level 137 Potassium Level 4.1 Chloride Level 108 Carbon Dioxide Level 21 Anion Gap 12 Blood Urea Nitrogen 12 Creatinine 0.61 Glucose Level 72 Uric Acid 4.5 Calcium Level 8.8 Total Bilirubin 0.0 L Direct Bilirubin 0.00 Indirect Bilirubin 0.0 Aspartate Amino Transf (AST/SGOT) 20 Alanine Aminotransferase (ALT/SGPT) 39 Alkaline Phosphatase 74 Total Protein 6.4 Albumin 3.1 L Globulin 3.30 H Albumin/Globulin Ratio 0.93 Disposition: Discharge Assessment/Plan Precautions discussed Labs reviewed ALLYSSA CASTILLO M.D. Aug 17, 2017 16:04
== END 2017-08-17 16:15 | disposition home or self-care (01) ==
LOC: OBT 12:41 → L-D 12:47 → OBT 16:15
PROVIDERS: ATTEND Obstetrics & Gynecology
DX: O24.410 Gestational diabetes mellitus in pregnancy, diet controlled (principal); Z3A.26 26 weeks gestation of pregnancy
CPT/HCPCS: 36415; 76818; 80053; 81001; 84560; 85025; Z7500; G0463

== ENCOUNTER 2017-08-28 15:36 | Outpatient (CLI) | payer BC ==
[~2017-08-28] VITALS: Ht 170.2 cm; Wt 117.1 kg
[~2017-08-28 15:36] MED LIST changes: -DENIES; +PREN1TAB79 PO
[2017-08-28 16:01] VITALS: BP 120/71; PULSE 102; RESP 18; Ht 170.2 cm; Wt 117.1 kg
[2017-08-28] MEDS ORDERED: FER325 PO (16:01)
[2017-08-28 16:46] LABS: BASOPHILS % 0.2 % (0.0-2.0); EOSINOPHILS # 0.2 10^3/ul (0.0-0.5); EOSINOPHILS % 1.9 % (0.0-7.0); HEMATOCRIT 32.8 % (37.0-47.0); HEMOGLOBIN 10.9 g/dl (12.0-16.0); LYMPHOCYTES % 19.3 % (18.0-55.0); MEAN CORPUSCULAR HEMOGLOBIN 29.9 pg (29.0-33.0); MEAN CORPUSCULAR HGB CONC 33.2 g/dl (32.0-37.0); MEAN CORPUSCULAR VOLUME 89.9 fl (72.0-104.0); MEAN PLATELET VOLUME 9.3 fl (7.4-10.4); MONOCYTE # 0.5 10^3/ul (0.3-0.9); MONOCYTES % 4.8 % (0.0-13.0); NEUTROPHIL # 7.6 10^3/ul (1.6-7.5); NEUTROPHILS % 73.2 % (30.0-74.0); PLATELET COUNT 303 10^3/UL (140-415); RED BLOOD COUNT 3.65 10^6/ul (4.20-5.40); WHITE BLOOD COUNT 10.3 10^3/ul (4.8-10.8)
[2017-08-28 16:49] LABS: ADD UMIC YES; UR ASCORBIC ACID NEGATIVE (NEGATIVE); UR BILIRUBIN (Dip) NEGATIVE (NEGATIVE); UR BLOOD (Dip) NEGATIVE (NEGATIVE); UR CLARITY CLOUDY (CLEAR); UR COLOR YELLOW (YELLOW); UR GLUCOSE (Dip) NEGATIVE (NEGATIVE); UR KETONES (Dip) NEGATIVE (NEGATIVE); UR LEUKOCYTE ESTERASE (Dip) 2+ Leu/ul (NEGATIVE); UR NITRITE (Dip) NEGATIVE (NEGATIVE); UR RBC 1 /HPF (0-5); UR SPECIFIC GRAVITY (Dip) 1.019 (1.003-1.030); UR SQUAMOUS EPITHELIAL CELL MODERATE /HPF (FEW); UR TOTAL PROTEIN (Dip) NEGATIVE (NEGATIVE); UR UROBILINOGEN (Dip) NEGATIVE (NEGATIVE)
--- NOTE | 2017-08-28 16:50 | RADRPT ---
PROCEDURE: Obstetrical ultrasound for biophysical profile CLINICAL INDICATION: Biophysical profile. . TECHNIQUE: Obstetrical ultrasound of the uterus for biophysical profile. Transabdominal views are obtained. COMPARISON: US PELVIS 08/17/2017 FINDINGS: Single intrauterine gestation. Presentation: Cephalic. Placenta: Anterior. No evidence of placental abruption. No evidence of placenta previa. breathing movement = 2/2 tone = 2/2 motion = 2/2 TESHA = 2/2 TESHA = 18.3 cm heart rate: 135 beats per minute IMPRESSION: Single intrauterine gestation. Biophysical profile 04/10 RPTAT: AADD .Daniel Mcfadden MD, MD Date Time Electronically viewed and signed by .Daniel Mcfadden MD, on 08/28/2017 16:50 .B/
[2017-08-28 17:05] LABS: ALBUMIN 3.7 g/dl (3.3-4.9); ALBUMIN/GLOBULIN RATIO 1.12; CALCIUM 8.9 mg/dl (8.4-10.2); CREATININE 0.57 mg/dl (0.44-1.00); POTASSIUM 3.9 mmol/L (3.5-5.1)
--- NOTE | 2017-08-28 18:08 | RADRPT ---
PROCEDURE: US OB. CLINICAL INDICATION: labor TECHNIQUE: Multiple sonographic images of the pelvis were obtained. The images were reviewed on a PACS workstation. COMPARISON: 08/17/2017 FINDINGS: The cervix is closed with a length of 3.2 cm. There is a single viable intrauterine gestation. Cardiac activity is present with 144 beats per min [place]. There is a cephalic presentation. Measurements were made in order to determine age. The results are as follows: BPD =7.14 cm HC =26.36 cm AC =24.50 cm FL =5.43 cm. Estimated gestational age of approximately 28 weeks 5 days. The estimated date of delivery is 11/15/2017. The EFW = 1274 g 37.1% . The placenta is anterior grade II.. There is no evidence for an abruption or placenta previa. There is a normal amount of amniotic fluid IMPRESSION: Single viable intrauterine gestation of approximately 28 weeks 5 days. The estimated date of delive ry is 11/15/2017 . Cervix is closed and measures 3.2 cm in length .Alphonse Chowdhury MD, Date Time Electronically viewed and signed by .Alphonse Chowdhury MD, on 08/28/2017 18:07 .W/
--- NOTE | 2017-08-28 18:20 | PN ---
Triage Information Date/Time Reason for visit: Vag spotting / bleeding Weeks of Gestation 28+ /Para 1/0 Diabetes: none Hypertention: none Objective Vital Signs Date Time Temp Pulse Resp B/P Pulse Ox O2 Delivery O2 Flow Rate FiO2 08/28/17 16:01 98.9 102 18 120/71 Room Air Heart Rate: 140's Contractions: None Results/Medications Result Diagram: 08/28/17 1620 08/28/17 1620 Results 24 hrs Laboratory Tests Test 08/28/17 15:45 08/28/17 16:20 Urine Color YELLOW Urine Clarity CLOUDY A Urine pH 6.0 Urine Specific [place] 1.019 Urine Ketones NEGATIVE Urine Nitrite NEGATIVE Urine Bilirubin NEGATIVE Urine Urobilinogen NEGATIVE Urine Leukocyte Esterase 2+ H Urine Microscopic RBC 1 Urine Microscopic WBC 6 H Urine Squamous Epithelial Cells MODERATE Urine Hemoglobin NEGATIVE Urine Glucose NEGATIVE Urine Total Protein NEGATIVE White Blood Count 10.3 Red Blood Count 3.65 L Hemoglobin 10.9 L Hematocrit 32.8 L Mean Corpuscular Volume 89.9 Mean Corpuscular Hemoglobin 29.9 Mean Corpuscular Hemoglobin Concent 33.2 Red Cell Distribution Width 13.0 Platelet Count 303 Mean Platelet Volume 9.3 Neutrophils % 73.2 Lymphocytes % 19.3 Monocytes % 4.8 Eosinophils % 1.9 Basophils % 0.2 Nucleated Red Blood Cells % 0.0 Neutrophils # 7.6 H Lymphocytes # 2.0 Monocytes # 0.5 Eosinophils # 0.2 Basophils # 0.0 Nucleated Red Blood Cells # 0.0 Sodium Level 138 Potassium Level 3.9 Chloride Level 108 Carbon Dioxide Level 20 L Anion Gap 14 Blood Urea Nitrogen 8 Creatinine 0.57 Glucose Level 131 Calcium Level 8.9 Total Bilirubin 0.0 L Direct Bilirubin 0.00 Indirect Bilirubin 0.0 Aspartate Amino Transf (AST/SGOT) 16 Alanine Aminotransferase (ALT/SGPT) 33 Alkaline Phosphatase 100 Total Protein 7.0 Albumin 3.7 Globulin 3.30 H Albumin/Globulin Ratio 1.12 Disposition: Discharge Assessment/Plan Precautions discussed patient is discharged ALLYSSA CASTILLO M.D. Aug 28, 2017 18:20
--- NOTE | 2017-08-28 18:27 | TRIAGE ---
OB Triage Datetime Report Generated by CPN: 08/28/2017 18:26 Datetime: 08/28/2017 18:16 Vaginal Exam Dilatation (cms): 0.0 Vaginal Bleeding: None Datetime: 08/28/2017 18:00 Stage of : OB Triage Maternal Assessment Level of Consciousness: Fully Conscious Labor Evaluation Frequency: NONE Monitor Mode: External Resting Tone [place]: Relaxed Heart Rate FHR Baseline Rate: 145 Monitor Mode: External US Variability: Moderate 6-25 bpm Accelerations: 15X15 Decelerations: None Pain Assessment Pain Scale: 0 Pain Goal: 3 Membrane Status: Intact Vaginal Bleeding: None Datetime: 08/28/2017 17:00 Stage of : OB Triage Maternal Assessment Level of Consciousness: Fully Conscious Labor Evaluation Frequency: NONE Monitor Mode: External Resting Tone [place]: Relaxed Heart Rate FHR Baseline Rate: 145 Monitor Mode: External US Variability: Moderate 6-25 bpm Accelerations: 15X15 Decelerations: None Category: Category I Pain Assessment Pain Scale: 0 Pain Goal: 3 Membrane Status: Intact Vaginal Bleeding: None Datetime: 08/28/2017 15:57 Assessment Type: Triage Maternal Assessment Level of Consciousness: Fully Conscious DTR's/Clonus: DTRs 2+; No Clonus Headache: Denies Blurred Vision: No Respiratory Effort: Unlabored; Regular Rhythm; Equal Expansion Breath Sounds, Left: Clear and Equal Breath Sounds, Right: Clear and Equal Nausea/Vomiting: Denies RUQ Epigastric Pain: Denies Lower Extremities Edema: None Degree: None Upper Extremities Edema: None Degree: None Facial Edema: None Fall Risk Assessment History of Falling: (0) No Secondary Diagnosis: (0) No Ambulatory Aid: (0) Bedrest/Nurse Assist IV Therapy: (0) No Gait: (0) Normal/Bedrest/Immobile Mental Status: (0) Oriented to Own Ability Fall Score: 0 Fall Risk Score Definition: No Risk: No action required Datetime: 08/28/2017 15:54 Time of Arrival: 08/28/2017 15:30 EGA: 28.5 Arrived By: Ambulatory Arrived From: Home Chief Complaint: PT HERE C/O DIZZINESS AND SPOTTING Movement: Present Contractions: Denies/Absent Rupture of Membranes: Denies Vaginal Bleeding: None Vaginal Discharge: Denies Recent Sexual Intercouse: Yes Abdominal Trauma: Fall Patient Complaints: None Time Provider Notified: 08/28/2017 16:10 Provider Notified: DELSHAD Initial Plan: CBC/CMP/BPP/EFW/CVL/SVE/UA/ Datetime: 08/28/2017 15:47 Monitor Mode: External Monitor Mode: External US Datetime: 08/17/2017 16:00 Maternal Assessment Level of Consciousness: Fully Conscious Headache: Denies Blurred Vision: No Respiratory Effort: Unlabored Nausea/Vomiting: Denies RUQ Epigastric Pain: Denies Pain Presence: None/Denies Datetime: 08/17/2017 15:58 Heart Rate FHR Baseline Rate: 145 Monitor Mode: External US Comments: ega 27.1 Datetime: 08/17/2017 15:44 Monitor Mode: Palpation Resting Tone [place]: Relaxed Pain Presence: None/Denies Datetime: 08/17/2017 14:45 Pain Presence: None/Denies Datetime: 08/17/2017 14:44 Resting Tone [place]: Relaxed Contraction Comments: pt. denies Comments: u.s. here at bedside Datetime: 08/17/2017 14:29 Monitor Mode: External US Datetime: 08/17/2017 14:03 Heart Rate FHR Baseline Rate: 140 Comments: loss of conact w/ movement. ega 27.1 Datetime: 08/17/2017 12:56 Stage of : OB Triage Assessment Type: Triage Maternal Assessment Level of Consciousness: Fully Conscious DTR's/Clonus: DTRs 2+; No Clonus Blurred Vision: No Respiratory Effort: Unlabored; Regular Rhythm; Equal Expansion Breath Sounds, Left: Clear and Equal Breath Sounds, Right: Clear and Equal Nausea/Vomiting: Denies RUQ Epigastric Pain: Denies Lower Extremities Edema: None Upper Extremities Edema: None Facial Edema: None Temperature Route: Oral Fall Risk Assessment History of Falling: (0) No Secondary Diagnosis: (0) No Ambulatory Aid: (0) Bedrest/Nurse Assist IV Therapy: (0) No Gait: (0) Normal/Bedrest/Immobile Mental Status: (0) Oriented to Own Ability Fall Score: 0 Fall Risk Score Definition: No Risk: No action required Contraction Comments: pt. denies Pain Assessment Pain Scale: 2 Pain Presence: Constant Pain Type: Dull Pain Location: Head Pain Relief Measures: Comfort Measures (Annotations: pt. states she took tylenol last p.m. and hel ped) Membrane Status: Intact Vaginal Bleeding: None Datetime: 07/25/2017 18:10 Time of Arrival: 08/17/2017 12:36 EGA: 27.1 Chief Complaint: sent from md office w/ elevated bp and c/o h.a 10/13 Movement: Present Contractions: Denies/Absent Rupture of Membranes: Denies Vaginal Bleeding: None Vaginal Discharge: Denies Recent Sexual Intercouse: Denies Abdominal Trauma: Not Applicable Patient Complaints: Headache Initial Plan: cbc, cmp, ua, uric acid, bpp Datetime: 07/25/2017 15:35 Fall Score: 0 Fall Risk Score Definition: No Risk: No action required Datetime: 07/25/2017 15:34 EGA: 23.6
== END 2017-08-28 18:20 | disposition home or self-care (01) ==
LOC: OBT 15:36 → L-D 15:37 → OBT 18:20
PROVIDERS: ATTEND Obstetrics & Gynecology
DX: O26.853 Spotting complicating pregnancy, third trimester (principal); Z3A.28 28 weeks gestation of pregnancy
CPT/HCPCS: 76815; 76817; 76818; 80053; 81001; 85025; Z7500; G0463

== ENCOUNTER 2017-10-19 18:30 | Inpatient (IN) | END 2017-10-25 13:09 | disposition home or self-care (01) | DRG 766 ==

== ENCOUNTER 2018-04-22 17:30 | Emergency (ER) | END 2018-04-22 20:14 | disposition left against medical advice (07) ==

== ENCOUNTER 2018-11-22 23:37 | Emergency (ER) | payer BC ==
[~2018-11-22] VITALS: Ht 170.2 cm; Wt 118.8 kg
[~2018-11-22 23:37] MED LIST changes: +FER325 PO
[2018-11-22 23:39] VITALS: BP 160/102; PULSE 84; RESP 18; Ht 170.2 cm; Wt 118.8 kg
--- NOTE | 2018-11-23 02:07 | ERD ---
ER Documentation Chief Complaint Chief Complaint AP, VOMIT/ DIARRHEA X'S 3 DAYS HPI This is a 23-year-old female presents to the emergency department with multiple complaints including left-sided abdominal pain during range of motion. Stated that it is much more painful whenever she carries her baby. Also stated that she had 3 nonbilious nonbloody emesis in the last 24 hours. Diarrhea multiple times in the last 24 hours. Stated that she went to an urgent care yesterday and was told it she needs to take her inhaler. LMP: Last month. A0. Denies headache, head injury, loss of consciousness, dizziness, neck pain, neck stiffness, throat pain, difficulty swallowing, difficulty breathing lying flat, shoulder pain, back pain, abdominal pain, nausea, vomiting, constipation, urinary symptoms, or possibility being , loss of bowel and bladder control, trauma, injury, falls, difficulty walking due to pain, numbness or tingling sensation, calf pain, recent travel, recent major surgery in the last 3 weeks, calf pain, recent long travel, recent exposure to any illness, recent antibiotic use in the last 3 months, fever, chills, seizures. Past medical history: Asthma. Stated that 1 of her aunts had a heart attack before the age of 50. Surgical history: x1. Social: Denies smoking, use of alcoholic beverages, use of illegal drugs. ROS All systems reviewed and are negative except as per history of present illness. Medications Home Meds Active Scripts Ibuprofen* (Motrin*) 800 Mg Tab, 800 MG PO Q6H PRN for PAIN AND OR ELEVATED TEMP, #30 TAB Prov:SOFYA DOBSON 11/23/18 Ondansetron Hcl* (Zofran*) 4 Mg Tablet, 4 MG PO Q8H PRN for NAUSEA AND/OR VOMITING, #30 TAB Prov:SOFYA DOBSON F 11/23/18 Cephalexin* (Keflex*) 500 Mg Capsule, 500 MG PO TID for 7 Days, CAP Prov:RENETTAILASOFYA PARKER F 11/23/18 Reported Medications Ferrous Sulfate* (Ferrous Sulfate*) 325 Mg Tabec, 325 MG PO DAILY, TAB 08/28/17 Vit W-Ca,Fe,FA(<1 mg) ( Vitamins) 1 Each Tablet, 1 EACH PO, TAB 12/15/17 Allergies Allergies: Coded Allergies: No Known Drug Allergies (Verified Allergy, Mild, 09/18/16) PMhx/Soc History of Surgery: No Anesthesia Reaction: No Hx Neurological Disorder: No Hx Respiratory Disorders: Yes (ASTHMA) Hx Cardiac Disorders: No Hx Psychiatric Problems: No Hx Miscellaneous Medical Probl: No Hx Alcohol Use: No Hx Substance Use: No Hx Tobacco Use: No Physical Exam Vitals Vital Signs Date Temp Pulse Resp B/P (MAP) Pulse Ox O2 O2 Flow FiO2 Time Delivery Rate 11/22/18 97.8 84 18 160/102 99 23:39 (121) Physical Exam Const: No acute distress Head: Atraumatic Eyes: Normal Conjunctiva ENT: Normal External Ears, Nose and Mouth. Bilateral ears: TMs are erythematous. No bleeding. No discharge. No hearing loss. No mastoid tenderness. Nose: There is no frontal or maxillary sinus tenderness palpation. Throat: Uvula is in midline and nondisplaced. Tonsils are +1 bilaterally without redness and without exudates. Tolerating secretions. Patent airway. Speaks full and clear sentences. No tripoding. Neck: Full range of motion. No meningismus. No nuchal rigidity. No signs of meningeal irritation. Resp: Clear to auscultation bilaterally. Chest: Examined with female supervisor typesetting. No vesicular lesions. Cardio: Regular rate and rhythm, no murmurs Abd: Soft, non tender, non distended. Normal bowel sounds. Negative Bajwa sign. Negative James sign (heel jar). Negative psoas sign. Negative Rovsing sign. Able to jump 10 times without developing lower abdominal pain. Skin: No petechiae or rashes. No signs of severe dehydration. Back: No midline or flank tenderness Ext: No cyanosis, or edema Neur: Awake and alert. No neurological deficits. Psych: Normal Mood and Affect Results 24 hrs Laboratory Tests Test 11/23/18 02:30 11/23/18 02:35 11/23/18 02:36 Urine Color YELLOW Urine Clarity CLEAR Urine pH 6.0 Urine Specific [place] 1.021 Urine Ketones NEGATIVE mg/dL Urine Nitrite POSITIVE mg/dL Urine Bilirubin NEGATIVE mg/dL Urine Urobilinogen NEGATIVE mg/dL Urine Leukocyte Esterase 1+ Taj/ul Urine Microscopic RBC 2 /HPF Urine Microscopic WBC 115 /HPF Urine Squamous Epithelial Cells FEW /HPF Urine Hemoglobin NEGATIVE mg/dL Urine Glucose NEGATIVE mg/dL Urine Total Protein NEGATIVE mg/dl Bedside Urine pH (LAB) 6.0 Bedside Urine Protein (LAB) Negative Bedside Urine Glucose (UA) Negative Bedside Urine Ketones (LAB) Negative Bedside Urine Blood Trace-intact Bedside Urine Nitrite (LAB) Positive Bedside Urine Leukocyte Esterase 2+ (L POC Beta HCG, Qualitative NEGATIVE Current Medications Medications Dose Sig/Zoila Start Time Status Last (Trade) Ordered Route PRN Stop Time Admin Dose Reason Admin Ibuprofen 800 mg ONCE ONCE 11/23/18 DC 11/23/18 (Motrin) PO 04:00 04:08 11/23/18 04:02 Ondansetron 4 mg ONCE STAT 11/23/18 DC 11/23/18 HCl (Zofran ODT 04:00 04:07 Odt) 11/23/18 04:02 Famotidine 40 mg ONCE ONCE 11/23/18 DC 11/23/18 (Pepcid) PO 04:00 04:07 11/23/18 04:02 Procedures/MDM Diagnostic tests: POC urine : Negative. Urinalysis: UTI EKG: Normal sinus rhythm with a ventricular rate of 66 bpm. No STEMI. Read by supervising physician. Treatment: Zofran ODT. Motrin p.o. Pepcid p.o. Re-evaluation: No episode of emesis here in the emergency department. No abdominal tenderness. Not in distress. Differential diagnosis I have low suspicion for sepsis, pneumonia, bronchospasm, acute abdomen, pancreatitis, cholecystitis, diverticulitis, diverticulitis with abscess, appendicitis, obstructing kidney stones, septic stone, pyelonephritis, severe dehydration. Final diagnosis: UTI. Prescription: Keflex. Motrin. Zofran. Follow-up with PCP in the next 24-48 hours. Come back here in the emergency department for any new symptoms or any worsening symptoms. All questions and concerns were answered. Patient and family members verbalized understanding and agreed with plan of care. Hemodynamically stable on discharge. Departure Diagnosis: Primary Impression: UTI (urinary tract infection) Condition: Stable Additional Instructions: Follow-up with PCP in the next 24-48 hours. Come back here in the emergency d epartment for any new symptoms or any worsening symptoms. SOFYA DOBSON Nov 23, 2018 02:07
[2018-11-23] MEDS ORDERED: IBUPROFEN 800 MG TAB PO ONE (04:00)
[2018-11-23] MEDS ORDERED: FAMOTIDINE 20 MG TAB PO ONE (04:00)
[2018-11-23] MEDS ORDERED: ONDANSETRON (ODT) 4 MG TAB ODT STA (04:00)
[2018-11-23] MEDS ORDERED: ONDA4TAB8 PO (04:02)
[2018-11-23] MEDS ORDERED: CEPH-443 PO (04:02)
[2018-11-23] MEDS ORDERED: IBUP800T48 PO (04:02)
== END 2018-11-23 04:14 | disposition home or self-care (01) ==
LOC: FTE 23:37
DX: N39.0 Urinary tract infection, site not specified (principal); J45.909 Unspecified asthma, uncomplicated
CPT/HCPCS: 81001; 81003; 81025; 93005; 99284; Z7610